=== PATIENT | male | born 1955 | race Two or more races ===

== ENCOUNTER → 2018-03-28 | Emergency (ER) | payer OTHER ==
[~2018-03-28] MED LIST: MOTRIN800 MG PO; ULTRACET PO
== END | disposition left against medical advice (07) ==
LOC: ER 23:15
DX: Z53.21 Procedure and treatment not carried out due to patient leaving prior to being seen by health care provider (principal)

== ENCOUNTER 2018-05-13 21:38 | Emergency (ER) | payer OTHER ==
[~2018-05-13] VITALS: Ht 165.1 cm; Wt 63.5 kg
[2018-05-14] MEDS ORDERED: ZOFRAN ODT4 MG PO (02:22)
[2018-05-14] MEDS ORDERED: CIPRO500 MG PO (02:22)
[2018-05-14] MEDS ORDERED: PEPCID40 MG PO (02:22)
== END 2018-05-14 02:27 | disposition home or self-care (01) ==
LOC: ER 21:38
DX: T62.8X1A Toxic effect of other specified noxious substances eaten as food, accidental (unintentional), initial encounter (principal); R10.84 Generalized abdominal pain; R07.89 Other chest pain

== ENCOUNTER 2018-10-08 19:36 | Outpatient (CLI) | payer OTHER ==
[~2018-10-08 19:36] MED LIST changes: +CIPRO500 MG PO; +PEPCID40 MG PO; +ZOFRAN ODT4 MG PO
== END 2018-10-08 19:46 | disposition home or self-care (01) ==
LOC: LAB 19:36
DX: R97.20 Elevated prostate specific antigen [PSA] (principal); N30.00 Acute cystitis without hematuria

== ENCOUNTER 2018-10-18 07:10 | Outpatient (CLI) | payer OTHER | END 2018-10-18 07:20 | disposition home or self-care (01) | LOC: RAD 07:10 | DX: M54.5 Low back pain (principal); R07.89 Other chest pain ==

== ENCOUNTER 2018-10-26 12:23 | Inpatient (IN) | payer OTHER ==
[~2018-10-26] VITALS: Ht 180.3 cm; Wt 97.5 kg
[2018-11-19] MEDS ORDERED: LOSARTAN POTASS50 MG (08:53)
[2018-11-19] MEDS ORDERED: CIALIS5 MG (08:53)
[2018-11-19] MEDS ORDERED: CELEBREX100 MG PO (11:08)
== END 2018-11-26 13:22 | disposition home or self-care (01) | DRG 714 ==
LOC: SURG 11-19 07:00 → O/R 11-23 10:21 → SURG 11-23 11:45 → SURH 11-23 20:26
PROVIDERS: ADMIT Urology
PROC: 0VB08ZX Excision of Prostate, Via Natural or Artificial Opening Endoscopic, Diagnostic (ICD-10-PCS; 2018-11-23)
PROC: 0VT08ZZ Resection of Prostate, Via Natural or Artificial Opening Endoscopic (ICD-10-PCS; principal; 2018-11-23 11:45)
DX: N40.1 Benign prostatic hyperplasia with lower urinary tract symptoms (principal); R97.20 Elevated prostate specific antigen [PSA]; R33.8 Other retention of urine

== ENCOUNTER 2018-11-19 08:37 | Emergency (ER) | payer OTHER ==
[~2018-11-19] VITALS: Ht 180.3 cm; Wt 95.3 kg
[2018-11-19] MEDS ORDERED: LOSARTAN POTASS50 MG (08:53)
[2018-11-19] MEDS ORDERED: CIALIS5 MG (08:53)
[2018-11-19] MEDS ORDERED: CELEBREX100 MG PO (11:08)
== END 2018-11-19 13:27 | disposition home or self-care (01) ==
LOC: ER 08:37
DX: M75.02 Adhesive capsulitis of left shoulder (principal); R07.89 Other chest pain; M25.512 Pain in left shoulder

== ENCOUNTER 2018-11-20 10:20 | Outpatient (CLI) | payer OTHER ==
[~2018-11-20 10:20] MED LIST changes: +CELEBREX100 MG PO; +CIALIS5 MG; +LOSARTAN POTASS50 MG
== END 2018-11-20 10:22 | disposition home or self-care (01) ==
LOC: NUCLEAR 10:20
DX: M81.0 Age-related osteoporosis without current pathological fracture (principal)

== ENCOUNTER → 2020-06-23 | Outpatient (CLI) | payer OTHER | END | disposition home or self-care (01) | LOC: TOM 13:15 | PROVIDERS: ATTEND Internal Medicine Pulmonary Disease | DX: Q33.0 Congenital cystic lung (principal); R91.1 Solitary pulmonary nodule ==

== ENCOUNTER 2023-11-08 12:29 | Emergency (ER) | payer OTHER ==
[~2023-11-08] VITALS: Ht 177.8 cm; Wt 87.5 kg
[2023-11-08 14:14] LABS: HEMATOCRIT 40.5 % (39.0-48.0); HEMOGLOBIN 13.9 g/dL (13-16.00); MEAN CORPUSCULAR HEMOGLOBIN 33.4 pg (27.00-32.0); MEAN CORPUSCULAR HGB CONC 34.4 g/dl (32.0-36.0); PLATELET COUNT 240 K/uL (150-450); RED BLOOD COUNT 4.18 M/uL (4.00-6.00); RED CELL DISTRIBUTION WIDTH 13.3 % (11.5-14.5)
[2023-11-08 14:25] LABS: ALBUMIN 3.6 gm/dL (3.4-5.0); BILIRUBIN TOTAL 0.6 mg/dL (0.3-1.2); CALCIUM 8.8 mg/dL (8.5-10.1); CREATININE SERUM 0.73 mg/dL (0.70-1.30); GFR 107.5; GLOBULINA 3.6 G/DL (2.4-3.5); POTASSIUM 3.96 mEq/L (3.5-5.1); TOTAL PROTEIN 7.2 gm/dL (6.4-8.2)
[2023-11-08] MEDS ORDERED: VISTARIL25 MG PO (15:29)
== END 2023-11-08 15:36 | disposition home or self-care (01) ==
LOC: ER 12:30
PROVIDERS: General Practice
DX: R07.9 Chest pain, unspecified (principal); I10 Essential (primary) hypertension; E11.9 Type 2 diabetes mellitus without complications